=== PATIENT | male | born 1990 | race Caucasian/White ===

== ENCOUNTER 2025-04-27 20:48 | Emergency (ER) | payer MEDICAID ==
[~2025-04-27] VITALS: Ht 182.9 cm; Wt 47.5 kg
--- NOTE | 2025-04-27 22:26 | Physician Documentation ---
History of Present Illness ~ Chief Complaint: ETOH Stated Complaint: MEDICAL CLEARANCE Time Seen by MD: 22:17 [facility] Patient presents to the emergency room for evaluation of alcohol abuse. He fell off the wagon this past week and has been drinking two pt a day for the past f darien days. He is concerned he may go through withdrawal. Last drink a proximally 1 hour prior to arrival Medication Reconciliation Allergies: Coded Allergies: No Known Allergies (Unverified , 04/27/25) Review of Systems ROS All review of systems negative except as per HPI Physical Exam Vital Signs: Temperature: 98.6, Source: Temporal, Heart Rate: 94, Respiratory Rate: 15, BP: 140/92, Pulse Oximetry: 97, Weight: 47.530 Physical Exam General: Patient is awake, alert, oriented x4 in no acute distress. No tremors Head: Normocephalic and atraumatic. Eyes: Conjunctival normal. EOMI. PERRL. ENT: Mucous membranes moist. Neck: Supple, trachea is midline. Chest: Clear to auscultation bilaterally without rales, rhonchi, or wheezes. There is no accessory muscle use or retractions. Cardiac: RRR without murmurs, gallops, or rubs. Abd: Soft, nondistended, nontender, with normoactive bowel sounds. No guarding, rebound, or rigidity. Progress Results/Orders Results/Orders Vital Signs 04/27/25 21:30 Temp 98.6 Pulse 94 Resp 15 B/P (MAP) 140/92 Pulse Ox 97 Medical Decision Making Findings Patient presented to the emergency room with alcohol abuse as per HPI. Patient's vital signs are stable and he is nontoxic appearing I do not feel emergent labs or imaging is necessary. Patient is very vague and what he wants from us. I explained to him that we are not a rehab facility but I can help him with his symptoms of nausea. He is not having any nausea right now but he states that he had feeling like he might get some. He states he wakes up in the morning feeling nauseous. I explained to him that this was the alcohol irritating his stomach and that has he cuts back this would not happened. He is not suffering from alcohol withdrawal. No SI/HI and I do not believe he is gravely disabled. Departure Disposition: 01 HOME / SELF CARE / HOMELESS Impression: Primary Impression: Alcohol abuse Condition: Stable Discharge Instructions: Alcohol Abuse and Dependence Information, Adult Referrals: NO PRIMARY CARE PROVIDER (PCP) Signature Scribe Signature: No scribe Attestation: The note accurately reflects work and decisions made by me.Zandra Haji MD 04/27/25 22:34 ZANDRA HAJI MD Apr 27, 2025 22:26
[2025-04-27] MEDS: ondansetron 4mg rapidly disintigrating tab PO ONE (22:38)
[2025-04-27 22:43] VITALS: BP 145/87; PULSE 83; RESP 15; TEMP 98.6; O2SAT 100
== END 2025-04-27 23:00 | disposition home or self-care (01) ==
LOC: ER 20:48
DX: F10.10 Alcohol abuse, uncomplicated (principal); Y90.9 Presence of alcohol in blood, level not specified
CPT/HCPCS: 99283